=== PATIENT | male | born 1970 | race American Indian/Alaskan Native ===

== ENCOUNTER 2017-08-20 12:03 | Emergency (ER) | payer OTHER ==
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
[2017-08-20 19:25] VITALS: BP 138/96
== END 2017-08-20 19:25 | disposition home or self-care (01) ==
LOC: ED 12:03
DX: S00.91XA Abrasion of unspecified part of head, initial encounter (principal); V89.2XXA Person injured in unspecified motor-vehicle accident, traffic, initial encounter; Y93.89 Activity, other specified; Y92.89 Other specified places as the place of occurrence of the external cause; Y99.8 Other external cause status
CPT/HCPCS: 70450; 72072; 72100; 72125